=== PATIENT | female | born 1990 | race Caucasian/White ===

== ENCOUNTER 2018-04-12 05:19 | Emergency (ER) | payer BC ==
[~2018-04-12] VITALS: Ht 152.4 cm; Wt 88.5 kg
[~2018-04-12 05:19] MED LIST: [UNRECOGNIZED DRUG - OTHER]
[2018-04-12] MEDS ORDERED: ONDANSETRON HCL INJ 2 MG/ML VIAL IV STA (05:23)
[2018-04-12] MEDS ORDERED: MORPHINE SULFATE 2 MG/ML SYR IV STA (05:23)
[2018-04-12] MEDS ORDERED: DEPO SHOT (05:28)
[2018-04-12] MEDS ORDERED: SODIUM CHLORIDE 0.9% 1000ML 1,000 ML IV ONE (05:30)
[2018-04-12] MEDS ORDERED: DICYCLOMINE HCL 20 MG/2 ML VIAL IM ONE (05:30)
[2018-04-12 05:50] LABS: BASOPHILS % 0.3 % (0.0-1.0); EOSINOPHILS # (AUTO) 0.1 (0.0-0.4); EOSINOPHILS % 1.3 % (0.0-6.0); HEMATOCRIT 39.8 % (34.2-44.1); HEMOGLOBIN 13.3 g/dL (12.0-16.0); LYMPHOCYTES # (AUTO) 2.6 (1.0-3.2); LYMPHOCYTES % 37.7 % (18.0-39.1); MEAN CORPUSCULAR HEMOGLOBIN 29.2 pg (28-32); MEAN CORPUSCULAR HGB CONC 33.4 g/dL (31-35); MEAN CORPUSCULAR VOLUME 87.5 fL (81-99); MONOCYTES # (AUTO) 0.4 (0.2-0.8); MONOCYTES % 6.5 % (4.4-11.3); NEUTROPHILS # (AUTO) 3.7 (2.1-6.9); NEUTROPHILS % 54.1 % (38.7-80.0); PLATELET COUNT 207 x10e3/uL (140-360); RED BLOOD COUNT 4.55 x10e6/uL (3.6-5.1); RED CELL DISTRIBUTION WIDTH 13.6 % (11.7-14.4)
[2018-04-12 06:00] LABS: CLARITY,URINE SL CLOUDY (CLEAR); COLOR,URINE YELLOW (YELLOW)
[2018-04-12 06:01] LABS: BILIRUBIN,URINE NEGATIVE (NEGATIVE); KETONES,URINE NEGATIVE (NEGATIVE); LEUKOCYTE ESTERASE ,URINE NEGATIVE (NEGATIVE); NITRITE,URINE NEGATIVE (NEGATIVE); PREGNANCY TEST, URINE NEGATIVE (NEGATIVE); PROTEIN,URINE DIPSTICK NEGATIVE (NEGATIVE); URINE UROBILINOGEN 0.2 mg/dL (0.2 - 1)
[2018-04-12 06:16] LABS: RBC,URINE 0-5 /HPF (0-5); WBC,URINE (MAN) 0-5 /HPF (0-5)
[2018-04-12 06:17] LABS: BACTERIA,URINE FEW /HPF; EPITHELIAL CELLS,URINE MODERATE /LPF
[2018-04-12 06:22] LABS: ALANINE AMINOTRANSFERASE 39 IU/L (0-55); ALBUMIN 3.9 g/dL (3.5-5.0); ALBUMIN/GLOBULIN RATIO 1.4 (0.8-2.0); ALKALINE PHOSPHATASE 80 IU/L (40-150); AMYLASE 55 U/L (25-125); ANION GAP 13.7 mmol/L (8-16); BLOOD UREA NITROGEN 13 mg/dL (7-26); BUN/CREATININE RATIO 16 (6-25); CALCIUM 9.5 mg/dL (8.4-10.2); CARBON DIOXIDE 19 mmol/L (22-29); CHLORIDE 109 mmol/L (98-107); CREATININE, SERUM 0.83 mg/dL (0.57-1.11); EST GLOMERULAR FILTRATION RATE > 60 ML/MIN (60-); GLUCOSE 96 mg/dL (74-118); LIPASE 36 U/L (8-78); POTASSIUM 3.7 mmol/L (3.5-5.1); SODIUM 138 mmol/L (136-145)
[2018-04-12] MEDS ORDERED: MORPHINE SULFATE INJ 4 MG/ML INJ ONE (06:35)
--- NOTE | 2018-04-12 07:32 | Diagnostic Imaging Report ---
PROCEDURE:US GALLBLADDER COMPARISON:07/01/2011. INDICATIONS:RUQ PAIN TECHNIQUE: Isabel-scale and color doppler transverse and longitudinal images of the right upper quadrant of the abdomen were obtained. FINDINGS: Liver: 14.5 cm in right mid-clavicular line. Normal parenchymal echogenicity. No masses. Main portal vein: 0.9 cm in caliber. Hepatopedal flow. Gallbladder: Multiple mobile shadowing calculi are identified within the gallbladder lumen. No wall thickening or pericholecystic fluid. Common Bile Duct: 0.3 cm in caliber. Sonographic Chen's sign: Reported as negative. Right kidney: 11.2 cm in length. Normal renal cortical echogenicity. No solid masses or hydronephrosis. Pancreas: Poorly visualized secondary to overlying bowel gas. Inferior vena cava: Patent Aorta: Non-aneurysmal Ascites: None in the right upper quadrant of the abdomen. CONCLUSION: Cholelithiasis without sonographic evidence of acute cholecystitis. Dictated by: Nitin Moreno M.D. on 04/12/2018 at 7:42 Electronically approved by: Nitin Moreno M.D. on 04/12/2018 at 7:42
[2018-04-12 08:27] VITALS: BP 95/60
== END 2018-04-12 08:42 | disposition home or self-care (01) ==
LOC: ER 05:19
DX: R10.13 Epigastric pain (principal); R11.2 Nausea with vomiting, unspecified; K80.70 Calculus of gallbladder and bile duct without cholecystitis without obstruction; F17.210 Nicotine dependence, cigarettes, uncomplicated
CPT/HCPCS: 36415; 76705; 80053; 81001; 81025; 82150; 83690; 85025; 99284; J0500; J2270; J2405; J7030

== ENCOUNTER → 2018-05-12 | Day surgery (SDC) | payer BC ==
[~2018-05-12] MED LIST changes: +ACETAMINOPHEN/CODEINE 300MG - 30MG TAB ONE; +BUPIVACAINE 0.25%/EPI 30ML SDV INJ ONE; +CEFOXITIN SOD 1 GM VIAL ONE; +DEPO SHOT; +DEXAMETHASONE SOD PHOS INJ 4 MG/ML VIAL ONE; +FENTANYL CITRATE/PF 100MCG/2 ML INJ ONE; +GLYCOPYRROLATE INJ 1MG/ 5 ML SYR ONE; +LEVSIN0.125 MG PO; +LIDOCAINE HCL 2% LOCAL INJ 5 ML SDV VIAL INJ ONE; +MIDAZOLAM HCL 2 MG/2 ML VIAL ONE; +MORPHINE SULFATE INJ 4 MG/ML INJ ONE; +NEOSTIGMINE 5 MG/5ML SYR ONE; +OMEGA 3-6-9 CO400 MG PO; +ONDANSETRON HCL INJ 2 MG/ML VIAL ONE; +PROPOFOL IV EMULSION 10 MG/ML 20 ML VIAL ONE; +ROCURONIUM BROMIDE 10 MG/ML 5ML VIAL ONE; +SEVOFLURANE INHAL SOLN 250 ML PEN BTL ONE; +SODIUM CHLORIDE 0.9% 50ML 100 ML ONE; +TYLENOL #4 PO
--- OUTSIDE RECORDS SUMMARY | 2018-05-12 10:19 | XMS REPORT ---
Author Author [facility] Address Unknown Phone Unavailable Care Team Providers [facility] [place] Name Role Phone LESLY FAIRCHILD PP Unavailable Kristen ZIEGLER Unavailable Magdy FAIRCHILD Unavailable Unavailable Payers Payer Name Policy Type Policy Number Effective Date Expiration Date Problems This patient has no known problems. Allergies, Adverse Reactions, Alerts Allergy Name Allergy Type Status Severity Reaction(s) Onset Date Inactive Date Treating Clinician Comments sulfamethoxazole DA Active SV 2016-10-30 00:00:00 trimethoprim DA Active SV 2016-10-30 00:00:00 Medications This patient has no known medications. Results Test Description Test Time Test Comments Text Results Atomic Results Result Comments [facility] 2018-04-12 07:42:00 [place] [address] Patient Name: SAMANTHA TAYLOR MR #: [id number] : 1990 Age/Sex: 28/F Req #: [id number] Adm Physician: Ordered by: JOAN ZIEGLER MD Report #: [id number] Location: ER Room/Bed: Procedure: [id number] US/US GALLBLADDER Exam Date: 04/12/18 Exam Time: 0705 REPORT STATUS: Signed PROCEDURE: US GALLBLADDER COMPARISON: 07/01/2011. INDICATIONS: RUQ PAIN TECHNIQUE: Isabel-scale and color doppler transverse and longitudinal images of the right upper quadrant of the abdomen were obtained. FINDINGS: Liver: 14.5 cm in right mid-clavicular line. Normal parenchymal echogenicity. No masses. Main portal vein: 0.9 cm in caliber. Hepatopedal flow. Gallbladder: Multiple mobile shadowing calculi are identified within the gallbladder lumen. No wall thickening or pericholecystic fluid. Common Bile Duct: 0.3 cm in caliber. Sonographic Chen's sign: Reported as negative. Right kidney: 11.2 cm in length. Normal renal cortical echogenicity. No solid masses or hydronephrosis. Pancreas: Poorly visualized secondary to overlying bowel gas. Inferior vena cava: Patent Aorta: Non-aneurysmal Ascites: None in the right upper quadrant of the abdomen. CONCLUSION: Cholelithiasis without sonographic evidence of acute cholecystitis. Dictated by: Chi Tompkins M.D. on 04/12/2018 at 7:42 Electronically approved by: Chi Tompkins M.D. on 04/12/2018 at 7:42 Dictated By: CHI TOMPKINS MD [id number] Transcribed By: YIMI on 04/12/18 0742 COPY TO: JOAN ZIEGLER MD Hemogram 2016-12-30 04:07:00 WBC (test code=WBC) 9.7 K/cumm 4.4-10.5 RBC (test code=RBC) 3.84 M/cumm 3.75-5.20 Hemoglobin (test code=HGB) 11.5 gm/dL 12.2-14.8 Hematocrit (test code=HCT) 32.9 % 36.5-44.4 MCV (test code=MCV) 85.6 fL 80-100 MCH (test code=MCH) 29.9 pg 27.0-32.5 MCHC (test code=MCHC) 34.9 g/dL 32.0-37.5 RDW (test code=RDW) 14.9 % 11.5-14.5 Platelet Count (test code=PLTCT) 155 K/cumm 140-440 MPV (test code=MPV) 8.8 fL RPR, [id number] 18:32:00* Test Item Value Reference Range Comments RPR (test code=RPR) Non-Reactive Non-Reactive Hep B Surface [id number] 12:56:00* Test Item Value Reference Range Comments Hep Bs Ag (test code=HBSAG) Nonreactive Non-Reactive CBC LD with [id number] 11:45:00* Test Item Value Reference Range Comments WBC (test code=WBC) 7.9 K/cumm 4.4-10.5 RBC (test code=RBC) 3.60 M/cumm 3.7-5.2 Hemoglobin (test code=HGB) 11.7 g/dL 12.2-14.8 Hematocrit (test code=HCT) 30.9 % 36.5-44.4 MCV (test code=MCV) 86.0 fL 80.0-100.0 MCH (test code=MCH) 32.4 pg 27.0-32.5 MCHC (test code=MCHC) 38 g/dL 32-37 RDW (test code=RDW) 15.0 % 11.5-14.5 Platelet Count (test code=PLTCT) 147 K/cumm 140-440 MPV (test code=MPV) 10.6 fL Diff Method (test code=DIFFM) Auto Neutrophil (test code=NEUT) 72.9 % 36.0-70.0 Lymphocyte (test code=LYMPH) 21.5 % 12.0-44.0 Monocyte (test code=MONO) 5.0 % 0.0-11.0 Eosinophil (test code=EOS) 0.4 % 0.0-7.0 Basophil (test code=BASO) 0.2 % 0.0-2.0 Neutro Abs (test code=ANEUT) 5.7 K/cumm 1.6-7.4 Lymph Abs (test code=ALYMPH) 1.7 K/cumm 0.5-4.6 [place] Abs (test code=AMONO) 0.4 K/cumm 0.0-1.2 Eos Abs (test code=AEOS) 0.0 K/cumm 0.0-0.7 Baso Abs (test code=ABASO) 0.0 K/cumm 0.0-0.2
--- NOTE | 2018-05-12 14:20 | Operative Report ---
DATE OF PROCEDURE: May 12, 2018 PREOPERATIVE DIAGNOSIS: Symptomatic cholelithiasis. POSTOPERATIVE DIAGNOSIS: Symptomatic cholelithiasis. OPERATIVE PROCEDURE: Laparoscopic cholecystectomy. ALLERGY PHYSICIAN: None. ANESTHESIA: General endotracheal. INDICATIONS: A 28-year-old female with recurrent epigastric pain with gallstone seen on ultrasound. Patient consented for laparoscopic cholecystectomy. Attendant risks of bleeding, infection and organ injury discussed. PROCEDURE FINDINGS: Chronic cholecystitis with gallstone. DESCRIPTION OF PROCEDURE: The patient was brought to the OR intubated. Abdomen was prepped with alcohol and draped in a sterile fashion. An infraumbilical incision is made and a 10-mm port inserted. Insufflation then begun. Under direct vision, other port site placed in the midepigastric and right upper quadrant. Gallbladder is grossly inflamed and distended. Fundus retracted in a cephalad direction with blunt dissection. The cystic artery is isolated and triple clipped and divided. The cystic duct is dissected down to the junction with the common bile duct, and the cystic duct then triple clipped approximately 1 cm away from the junction and cystic duct divided between clips. Gallbladder detached from liver with cautery and taken out through the umbilical incision. The operative field was then irrigated. Hemostasis achieved. All ports then removed under direct vision. Fascia closure with 0 Vicryl. Skin closed with subcuticular stitch. Patient is extubated and transported to the recovery room . Estimated blood loss 5 mL. Job#: [id number]
[2018-05-12 15:25] VITALS: BP 116/58
== END | disposition home or self-care (01) ==
LOC: OR 10:16
PROVIDERS: ATTEND Surgery
DX: K80.10 Calculus of gallbladder with chronic cholecystitis without obstruction (principal); Z88.1 Allergy status to other antibiotic agents; Z88.2 Allergy status to sulfonamides
CPT/HCPCS: 47562; 81025; 88304; J0694; J1100; J2001; J2250; J2270; J2405; J2704; J3490